=== PATIENT | female | born 2000 | race Caucasian/White ===

== ENCOUNTER 2024-01-06 19:24 | Outpatient (CLI) | payer OTHER ==
--- NOTE | 2024-01-07 12:56 | XRAY Report ---
PROCEDURE: Ankle 3+V RT INDICATIONS: R ANKLE PAIN TECHNIQUE: 3 views of the ankle were acquired. COMPARISON: None. FINDINGS: Bones: No fractures or dislocations. Ankle mortise is normally aligned. No suspicious bony lesions . Soft tissues: No tibiotalar joint effusion. Achilles tendon appears normal. IMPRESSION: No acute bony abnormality. Reviewed by: Reid Marin MD on 01/07/2024 12:55 PM PDT Approved by: Reid Marin MD on 01/07/2024 12:55 PM PDT Station ID: [id number]
--- NOTE | 2024-01-07 20:45 | XRAY Report ---
PROCEDURE: Foot 3+V RT INDICATIONS: R ANKLE PAIN TECHNIQUE: 3 views of the foot were acquired. COMPARISON: None. FINDINGS: Bones: No fractures or dislocations. No suspicious bony lesions. Soft tissues: No tibiotalar joint effusion. Achilles tendon appears normal. IMPRESSION: No acute bony abnormality. Reviewed by: Francisco Hamm MD on 01/07/2024 8:44 PM PDT Approved by: Francisco Hamm MD on 01/07/2024 8:44 PM PDT Station ID: [id number]
== END 2024-01-06 19:25 | disposition home or self-care (01) ==
LOC: DI 19:24
PROVIDERS: ATTEND Physician Assistant Medical
DX: M25.571 Pain in right ankle and joints of right foot (principal)